=== PATIENT | male | born 1990 | race Caucasian/White ===

== ENCOUNTER → 2023-01-21 | Outpatient (CLI) | payer BC ==
[2023-01-21 11:08] LABS: HEMATOCRIT 47.9 % (42.0-52.0); HEMOGLOBIN 15.7 g/dl (13.5-17.5); MEAN CORPUSCULAR HEMOGLOBIN 29.3 pg (27.0-33.0); MEAN CORPUSCULAR HGB CONC 32.8 g/dl (32.0-36.5); MEAN CORPUSCULAR VOLUME 89.5 fl (80.0-96.0); PLATELET COUNT, AUTOMATED 248 10^3/uL (150-450); RED BLOOD COUNT 5.35 10^6/uL (4.30-6.10); WHITE BLOOD COUNT 4.7 10^3/uL (4.0-10.0)
[2023-01-21 11:15] LABS: HEMOGLOBIN A1c 5.3 % (4.0-6.0)
[2023-01-21 11:40] LABS: TOTAL IRON BINDING CAPACITY 383 UG/DL (250-425)
[2023-01-21 11:42] LABS: ALBUMIN 4.2 G/DL (3.2-5.2); ALKALINE PHOSPHATASE 54 U/L (46-116); ALT/SGPT 25 U/L (7.0-40); AST/SGOT 9 U/L (<34); BILIRUBIN,TOTAL 0.8 MG/DL (0.3-1.2); BLOOD UREA NITROGEN 23 MG/DL (9-23); CALCIUM LEVEL 9.7 MG/DL (8.5-10.1); CARBON DIOXIDE LEVEL 30 MMOL/L (20-31); CHLORIDE LEVEL 105 MMOL/L (98-107); CHOLESTEROL LEVEL 247 MG/DL (<200); CHOLESTEROL RISK RATIO 4.22 (<5); CREATININE FOR GFR 1.05 MG/DL (0.70-1.30); GLOMERULAR FILTRATION RATE > 60.0 (>60); GLUCOSE, FASTING 87 MG/DL (60-100); HDL CHOLESTEROL 58.5 MG/DL (>40); IRON (FE) 141 UG/DL (65-175); LDL CHOLESTEROL 170.7 MG/DL (<100); NON-HDL-C 188.5 MG/DL; PERCENT SATURATION 36.8 % (19.7-50.0); POTASSIUM SERUM 4.9 MMOL/L (3.5-5.1); SODIUM LEVEL 139 MMOL/L (136-145); TOTAL PROTEIN 7.2 G/DL (5.7-8.2); TRIGLYCERIDES LEVEL 89 MG/DL (<150)
[2023-01-21 11:44] LABS: C REACTIVE PROTEIN QUANTITATIV < 0.40 MG/DL (<1.0); VITAMIN B12 LEVEL 424 PG/ML (211-911)
[2023-01-21 11:45] LABS: THYROID STIMULATING HORMONE 1.567 uIU/ML (0.55-4.78); TOTAL 25(OH) VITAMIN D 60.9 NG/ML (20.0-100.0)
[2023-01-21 11:47] LABS: FREE T4 1.26 NG/DL (0.89-1.76)
[2023-01-21 11:51] LABS: CREATININE, URINE 60.8 MG/DL
[2023-01-21 11:54] LABS: MALB URINE SIEMENS < 3.0 MG/L; MAU/CREAT RATIO 4.9 MCG/MG (0.0-30.0)
[2023-01-22 23:07] LABS: INSULIN LEVEL 7.1 uIU/mL (2.6-24.9); LIPOPROTEIN (a) 68.1 nmol/L (<75.0)
== END ==
LOC: M PLALAB 09:08
PROVIDERS: ATTEND Internal Medicine Hematology
DX: E78.5 Hyperlipidemia, unspecified (principal)